=== PATIENT | male | born 2000 | race Caucasian/White ===

== ENCOUNTER 2018-02-05 19:57 | Emergency (ER) | payer OTHER ==
--- NOTE | 2018-02-05 20:09 | EDPHY ---
HPI/HX/ROS/PE/MDM Narrative: CHIEF COMPLAINT: Left-sided migraine, nausea and vomiting HPI: The patient is a 18 y/o male with a history of migraines, anxiety, and depression complaining of a left-sided migraine, nausea and vomiting. Around 3 weeks ago on 01/18/18, he took 10mg PO Lexapro and 10mg PO Rizatriptan on an empty stomach and woke up the next day with a panic attack and fever. These symptoms improved over the next 5 days. Around 8 days ago he saw a psychiatrist and was advised to take gabapentin for anxiety and dizziness. He took Gabapentin for 3 days last weekend, but his dizziness worsened and he became lethargic. Since stopping Gabapentin, he has had a "scattered brain" and "can't get back to normal". He tried taking Vivanz for the last 3 days, which did not improve his symptoms. This morning he developed a left-sided migraine headache and has been nauseous and vomiting. His migraines vary in location and are typically behind his eyes or on one side of his head. His mother is concerned that this patient is still suffering from chronic serotonin syndrome. No chest pain, shortness of breath, abdominal pain, urinary or bowel complaints, numbness , paresthesias. Patient's entire HPI was provided by his mother who is at the bedside. REVIEW OF SYSTEMS: Aside from elements discussed in the HPI, a comprehensive 10 system review of systems is otherwise negative. PMH: Migraines, anxiety, depression SOCIAL HISTORY: Mother at bedside, student in college PHYSICAL EXAM: General: Patient is lying in a dark room, alert, in no acute distress. ENT: Eyes are normal to inspection. ENT inspection normal. Neck: Normal inspection. Full range of motion. No meningismus. Respiratory: No respiratory distress. Breath sounds normal bilaterally. Cardiovascular: Regular rate and rhythm. Strong peripheral pulses. Normal cap refill. Abdomen: The abdomen is nontender to palpation. There are no peritoneal signs. There are normal bowel sounds. Back: Normal to inspection. No tenderness to palpation. Skin: Normal color. No rash. Warm and dry. Extremities: Normal appearance. Full range of motion. Neuro: Oriented x3. Normal cranial nerves. No pronator drift. Normal motor function. Normal sensory function. No clonus. ED Course: 2149: Reassessed patient, he is sleeping after receiving a a migraine cocktail. 2222: Reassessed patient, he is asymptomatic and requesting to return home. I discussed follow up with a neurologist and psychologist. Return precautions provided; patient is comfortable with this plan. MDM: This patient presents with migraine headache, typical of prior migraines and without focal neuro deficits to suggest ICH or meningitis or CVA. This is complicated by recent changes in his medications which his mother believes have caused serotonin syndrome. While this may have been the case a few weeks ago, there are clearly no signs of acute serotonin syndrome at this time. Mother, who essentially provides all history, is requesting that someone adjust all of his medications to get him back to normal. I explained that this isn't possible in the ER and agreed to give him an outpatient referral. Patient was treated with non-narcotic, non-serotonergic medications in the ED and his symptoms have apparently resolved. I think he is safe for discharge home. - Data Points Laboratory Results: Laboratory Results 02/05/18 20:25 02/05/18 20:25 02/05/18 02/05/18 20:25 20:25 WBC 9.42 10^3/uL 10^3/uL (3.80-9.50) RBC 5.49 10^6/uL 10^6/uL (4.40-6.38) Hgb 16.9 g/dL g/dL (13.7-17.5) Hct 48.9 % % (40.0-51.0) MCV 89.1 fL fL (81.5-99.8) MCH 30.8 pg pg (27.9-34.1) MCHC 34.6 g/dL g/dL (32.4-36.7) RDW 13.1 % % (11.5-15.2) Plt Count 217 10^3/uL 10^3/uL (150-400) MPV 9.8 fL fL (8.7-11.7) Neut % (Auto) 70.1 % % (39.3-74.2) Lymph % (Auto) 20.2 % % (15.0-45.0) [place] % (Auto) 8.2 % % (4.5-13.0) Eos % (Auto) 0.3 % L % (0.6-7.6) Baso % (Auto) 1.0 % % (0.3-1.7) Nucleat RBC Rel Count 0.0 % % (0.0-0.2) Absolute Neuts (auto) 6.61 10^3/uL H 10^3/uL (1.70-6.50) Absolute Lymphs (auto) 1.90 10^3/uL 10^3/uL (1.00-3.00) Absolute Monos (auto) 0.77 10^3/uL 10^3/uL (0.30-0.80) Absolute Eos (auto) 0.03 10^3/uL 10^3/uL (0.03-0.40) Absolute Basos (auto) 0.09 10^3/uL 10^3/uL (0.02-0.10) Absolute Nucleated RBC 0.00 10^3/uL 10^3/uL (0-0.01) Immature Gran % 0.2 % % (0.0-1.1) Immature Gran # 0.02 10^3/uL 10^3/uL (0.00-0.10) Sodium 139 mEq/L mEq/L (135-145) Potassium 4.2 mEq/L mEq/L (3.5-5.2) Chloride 104 mEq/L mEq/L (97-110) Carbon Dioxide 27 mEq/l mEq/l (22-31) Anion Gap 8 mEq/L mEq/L (6-14) BUN 14 mg/dL mg/dL (7-23) Creatinine 0.8 mg/dL mg/dL (0.7-1.3) Estimated GFR > 60 Glucose 104 mg/dL H mg/dL (70-100) Calcium 9.7 mg/dL mg/dL (8.5-10.4) Medications Given: Discontinued Medications Diphenhydramine HCl (Benadryl Injection) 25 mg IVP EDNOW ONE Stop: 02/05/18 20:21 Last Admin: 02/05/18 20:39 Dose: 25 mg Sodium Chloride (Ns) 1,000 mls @ 0 mls/hr IV ONCE ONE; Wide Open PRN Reason: Protocol Stop: 02/05/18 20:21 Last Admin: 02/05/18 20:35 Dose: 1,000 mls Ketorolac Tromethamine (Toradol) 30 mg IVP EDNOW ONE Stop: 02/05/18 20:21 Last Admin: 02/05/18 20:37 Dose: 30 mg Lorazepam (Ativan Injection) 1 mg IVP EDNOW ONE Stop: 02/05/18 20:21 Last Admin: 02/05/18 20:39 Dose: 1 mg General Time Seen by Provider: 02/05/18 20:07 Initial Vital Signs: Initial Vital Signs Temperature (C) 36.6 C 02/05/18 20:03 Heart Rate 103 H 02/05/18 20:03 Respiratory Rate 16 02/05/18 20:03 Blood Pressure 132/81 H 02/05/18 20:03 O2 Sat (%) 97 02/05/18 20:03 O2 Delivery Mode Room Air Allergies/Adverse Reactions: rizatriptan Allergy (Verified 02/05/18 20:01) Home Medications: Medication Instructions Recorded VYVANSE 02/05/18 Departure - Departure Disposition: Home, Routine, Self-Care Clinical Impression: Migraine Condition: Good Instructions: Migraine Headache (ED) Additional Instructions: Follow-up with your primary care physician, neurologist, and psychologist within the next week. Return to the emergency department immediately for recurrence of headache, nausea, vomiting, numbness, weakness, neck pain, fever or other concerns. Referrals: FATIMAH MATT [Other] - As per Instructions Link Tyson DO [Medical Doctor] - As per Instructions Damian Mendes MD [Medical Doctor] - As per Instructions Report Scribed for: Sumanth Diallo Report Scribed by: Bhavana Mas Date of Report: 02/05/18 Time of Report: 20:09 Physician Review and Approval Statement: Portions of this note were transcribed by an ED scribe. I personally performed the history, physical exam, and medical decision making; and confirm the accuracy of the information in the transcribed note.
[2018-02-05] MEDS ORDERED: LORazepam 2 MG/ML INJ IVP ONE (20:20)
[2018-02-05] MEDS ORDERED: KETOROLAC 30 MG/1 ML SDV IVP ONE (20:20)
[2018-02-05] MEDS ORDERED: NS 1,000 ML IV ONE (20:20)
[2018-02-05 20:36] LABS: PLATELET COUNT 217 10^3/uL (150-400)
[2018-02-05 22:21] VITALS: BP 103/56
== END 2018-02-05 22:34 | disposition home or self-care (01) ==
DX: G43.909 Migraine, unspecified, not intractable, without status migrainosus (principal); R11.2 Nausea with vomiting, unspecified; E86.9 Volume depletion, unspecified
CPT/HCPCS: 96374; J1200; J1885; J2060